=== PATIENT | male | born 1940 | race Caucasian/White ===

== ENCOUNTER 2017-12-17 12:54 | Inpatient (IN) | payer MEDICARE ==
[~2017-12-17] VITALS: Ht 175.3 cm; Wt 80.3 kg
[~2017-12-17 12:54] MED LIST: ACET650T24 PO; ADV250 IH; ALLO300T2 PO; ASCO500C6 PO; ATEN25TA PO; BETA2500 PO; CALC-190 PO; CHOL378P PO; FOLI1TAB85 PO; HYDR-4153 PO; LANS30CA53 PO; LEVO150T11 PO; LOSA25TA21 PO; LYCO10CA3 PO; LYSI500T45 PO; MAGNESIUM/ZINC PO; OMEG1CAP6 PO; PARO30TA76 PO; VITA400C70 PO; VITA80008 PO; VITAMIN B PO
[2017-12-17 14:07] LABS: BASOPHILS % (AUTO) 0.2 % (0.0-5.0); EOSINOPHILS % (AUTO) 0.1 % (0.0-8.0); LYMPHOCYTES % (AUTO) 7.6 % (21.0-51.0); MEAN CORPUSCULAR HEMOGLOBIN 34.2 pg (27.0-33.0); MEAN CORPUSCULAR HGB CONC 34.2 g/dL (32.0-36.0); NEUTROPHILS % (AUTO) 80.1 % (40.0-77.0); PLATELET COUNT (AUTO) 259 K/uL (130-400); RED BLOOD CELL COUNT(AUTO) 3.89 MIL/uL (4.50-6.20); RED CELL DISTRIBUTION WIDTH 12.9 % (11.0-15.5); WHITE BLOOD COUNT (AUTO) 18.6 K/uL (4.8-10.8)
[2017-12-17 14:18] LABS: CREATININE 2.8 mg/dL (0.5-1.5); POTASSIUM 3.7 mmol/L (3.5-5.1)
[2017-12-17] MEDS ORDERED: SODIUM CHLORIDE 0.9% 500ML 500 ML IV ONE (14:22)
[2017-12-17 14:23] LABS: ALBUMIN 2.8 g/dL (3.5-5.0); BILIRUBIN,TOTAL 0.6 mg/dL (0.2-1.0); TOTAL PROTEIN, SERUM 7.6 g/dL (6.0-8.3)
[2017-12-17] MEDS ORDERED: VANCOMYCIN 1GM+NS 250ML 250 ML IV ONE (14:59)
[2017-12-17] MEDS ORDERED: MEROPENEM 1 GM VIAL ONE (14:59)
[2017-12-17 17:18] LABS: APPEARANCE,URINE Clear (CLEAR); BILIRUBIN,URINE Negative (NEGATIVE); COLOR,URINE Yellow (YELLOW); GLUCOSE, URINE (UA) Negative (NEGATIVE); KETONES,URINE Negative (NEGATIVE); LEUKOCYTE ESTERASE ,URINE Negative (NEGATIVE); NITRATE,URINE Negative (NEGATIVE); OCCULT BLOOD,URINE Negative (NEGATIVE); PROTEIN,URINE Negative (NEGATIVE); UROBILINOGEN,URINE 0.2 mg/dL (0.2-1.0)
[2017-12-17] MEDS ORDERED: IPRATROPIUM/ALBUTEROL SULFATE 3 ML SOLUTION IH ONE (17:48)
[2017-12-17] MEDS ORDERED: GUAIFENESIN-DM 200/20 MG 10 ML ONE (18:15)
[2017-12-17] MEDS ORDERED: LEVOFLOXACIN 500 MG/D5W 100 ML 100 ML ONE (18:15)
[2017-12-18] MEDS ORDERED: IPRATROPIUM/ALBUTEROL SULFATE 3 ML SOLUTION IH ONE (00:48)
[2017-12-18] MEDS: SODIUM CHLORIDE 0.9% 1000ML 1,000 ML IV SCH ×2 (02:16→16:30)
[2017-12-18] MEDS ORDERED: LACTULOSE 20 GM/30 ML UDCUP PO PRN (02:30)
[2017-12-18] MEDS ORDERED: MORPHINE SULFATE 2 MG/ML 1ML SYG IVP PRN ×2 (02:30)
[2017-12-18] MEDS ORDERED: HYDRALAZINE HCL 20 MG/ML VIAL IV PRN (02:30)
[2017-12-18 04:00] VITALS: BP 144/70
[2017-12-18 06:09] LABS: BASOPHILS % (AUTO) 0.3 % (0.0-5.0); EOSINOPHILS % (AUTO) 0.4 % (0.0-8.0); HEMATOCRIT 37.7 % (42-54); LYMPHOCYTES % (AUTO) 10.8 % (21.0-51.0); MEAN CORPUSCULAR HEMOGLOBIN 33.7 pg (27.0-33.0); MEAN CORPUSCULAR HGB CONC 33.9 g/dL (32.0-36.0); MEAN CORPUSCULAR VOLUME 99.6 fL (79-99); MONOCYTES % (AUTO) 14.3 % (3.0-13.0); NEUTROPHILS % (AUTO) 74.2 % (40.0-77.0); NUCLEATED RED BLOOD CELLS 0.1 % (0.0-0.19); PLATELET COUNT (AUTO) 262 K/uL (130-400); RED BLOOD CELL COUNT(AUTO) 3.78 MIL/uL (4.50-6.20); RED CELL DISTRIBUTION WIDTH 12.8 % (11.0-15.5); WHITE BLOOD COUNT (AUTO) 16.1 K/uL (4.8-10.8)
[2017-12-18] MEDS: IPRATROPIUM/ALBUTEROL SULFATE 3 ML SOLUTION IH SCH ×5 (06:20→22:53)
[2017-12-18] MEDS ORDERED: GUAIFENESIN SUGAR-FREE 100 MG/5 ML UDCUP PO PRN (06:30)
[2017-12-18] MEDS ORDERED: ONDANSETRON HCL 4 MG/2 ML VIAL IVP PRN (06:30)
[2017-12-18 06:35] LABS: B-TYPE NATRIURETIC PEPTIDE 304 pg/mL (0-100)
[2017-12-18 07:00] VITALS: BP 147/65
[2017-12-18 07:23] LABS: ALANINE AMINOTRANSFERASE 85 U/L (12-78); ALBUMIN 2.4 g/dL (3.5-5.0); ASPARTATE AMINOTRANSFERASE 65 U/L (10-37); BILIRUBIN,TOTAL 0.6 mg/dL (0.2-1.0); CARBON DIOXIDE 30 mmol/L (21-32); CHLORIDE 106 mmol/L (101-111); CREATINE KINASE MB < 0.5 ng/mL (0.5-3.6); CREATINE KINASE, TOTAL 43 U/L (21-232); CREATININE 2.3 mg/dL (0.5-1.5); GLOMERULAR FILTR. RATE CALC 29 mL/min (>60); GLUCOSE,RANDOM 101 mg/dL (70-105); MYOGLOBIN 132 ng/mL (10-92); POTASSIUM 3.8 mmol/L (3.5-5.1); SODIUM SERUM 143 mmol/L (136-145); THYROID STIMULATING HORMONE 2.43 uIU/mL (0.36-3.74); TOTAL PROTEIN, SERUM 6.8 g/dL (6.0-8.3); TROPONIN I < 0.04 ng/mL (0.00-0.06); UREA NITROGEN, BLOOD 42 mg/dL (7-18)
[2017-12-18] MEDS ORDERED: ASPI-555 PO (08:11)
[2017-12-18] MEDS ORDERED: LANS30TA4 PO (08:11)
[2017-12-18] MEDS ORDERED: FERS325 PO (08:11)
[2017-12-18] MEDS ORDERED: ATEN50TA PO (08:11)
[2017-12-18] MEDS ORDERED: MELA1TAB17 PO (08:11)
[2017-12-18] MEDS ORDERED: FURO20TA6 PO (08:11)
[2017-12-18] MEDS ORDERED: DICL50TA9 PO (08:11)
[2017-12-18] MEDS ORDERED: ATOR20TA65 PO (08:11)
[2017-12-18] MEDS ORDERED: PRIM50TA29 PO (08:11)
[2017-12-18] MEDS ORDERED: LEVO175T9 PO (08:11)
[2017-12-18] MEDS ORDERED: ERGO500014 PO (08:11)
[2017-12-18] MEDS ORDERED: LEVOFLOXACIN 500 MG/D5W 100 ML 100 ML IV SCH ×2 (09:00→12:24)
[2017-12-18] MEDS ORDERED: DICLOFENAC SODIUM 50 MG PO SCH (09:13)
[2017-12-18 11:00] VITALS: BP 130/63
[2017-12-18] MEDS: FERROUS SULFATE 325 MG TABLET.DR PO SCH ×2 (11:55→18:05)
[2017-12-18] MEDS: FUROSEMIDE 20 MG TABLET PO SCH ×2 (11:55→18:05)
[2017-12-18] MEDS: ASPIRIN 81 MG EC TAB PO SCH (11:55)
[2017-12-18] MEDS: FAMOTIDINE 20MG TAB 20 MG TAB PO SCH ×2 (11:55→20:29)
[2017-12-18] MEDS: ERGOCALCIFEROL (VITAMIN D2) 50,000 UNIT CAPSULE PO SCH (11:56)
[2017-12-18] MEDS: LOSARTAN 100 MG TABLET PO SCH (11:56)
[2017-12-18] MEDS: LANSOPRAZOLE 15 MG SOLU TAB PO SCH (11:56)
[2017-12-18] MEDS: ACETYLCYSTEINE 20% 200MG/ML 4ML VIAL IH SCH ×2 (13:20→19:47)
[2017-12-18] MEDS: PAROXETINE HCL 20 MG TABLET PO SCH (13:50)
[2017-12-18 16:00] VITALS: BP 145/71
[2017-12-18 20:00] VITALS: BP 157/79
[2017-12-18] MEDS: ATENOLOL 50 MG TABLET PO SCH (20:27)
[2017-12-18] MEDS: CHOLESTYRAMINE PACKET 4 GM PACKET PO SCH (20:28)
[2017-12-18] MEDS: ATORVASTATIN CALCIUM 20 MG TABLET PO SCH (20:30)
[2017-12-18] MEDS: PRIMIDONE 50 MG TAB PO SCH (20:31)
[2017-12-18] MEDS: PYRIDOXINE HCL PO SCH (20:32)
[2017-12-18] MEDS: ACETAMINOPHEN 325 MG TAB PO PRN (20:32)
[2017-12-18] MEDS: MELATONIN PO SCH (20:32)
[2017-12-19] VITALS: BP 156/65
[2017-12-19] MEDS: IPRATROPIUM/ALBUTEROL SULFATE 3 ML SOLUTION IH SCH ×4 (02:44→23:54)
[2017-12-19 04:00] VITALS: BP 158/83
[2017-12-19 05:33] LABS: BASOPHILS % (AUTO) 0.2 % (0.0-5.0); EOSINOPHILS % (AUTO) 0.3 % (0.0-8.0); HEMATOCRIT 35.8 % (42-54); LYMPHOCYTES % (AUTO) 10.4 % (21.0-51.0); MEAN CORPUSCULAR VOLUME 99.8 fL (79-99); MONOCYTES % (AUTO) 17.1 % (3.0-13.0); PLATELET COUNT (AUTO) 271 K/uL (130-400); RED BLOOD CELL COUNT(AUTO) 3.59 MIL/uL (4.50-6.20); RED CELL DISTRIBUTION WIDTH 12.9 % (11.0-15.5); WHITE BLOOD COUNT (AUTO) 13.8 K/uL (4.8-10.8)
[2017-12-19 05:42] LABS: CREATININE 1.9 mg/dL (0.5-1.5); POTASSIUM 3.6 mmol/L (3.5-5.1)
[2017-12-19 06:06] LABS: B-TYPE NATRIURETIC PEPTIDE 436 pg/mL (0-100)
[2017-12-19] MEDS: LEVOTHYROXINE 100 MCG TABLET PO SCH (06:35)
[2017-12-19] MEDS: LEVOTHYROXINE 75 MCG TABLET PO SCH (06:35)
[2017-12-19 08:00] VITALS: BP 157/72
[2017-12-19] MEDS: LANSOPRAZOLE 15 MG SOLU TAB PO SCH (09:00)
[2017-12-19] MEDS: PAROXETINE HCL 20 MG TABLET PO SCH (09:00)
[2017-12-19] MEDS: FAMOTIDINE 20MG TAB 20 MG TAB PO SCH ×2 (09:57→22:03)
[2017-12-19] MEDS: VITAMIN B COMPLEX 1 CAPSULE PO SCH (09:57)
[2017-12-19] MEDS: FERROUS SULFATE 325 MG TABLET.DR PO SCH ×2 (09:57→17:35)
[2017-12-19] MEDS: LOSARTAN 100 MG TABLET PO SCH (09:57)
[2017-12-19] MEDS: FUROSEMIDE 20 MG TABLET PO SCH ×2 (09:58→17:35)
[2017-12-19] MEDS: ASPIRIN 81 MG EC TAB PO SCH (09:58)
[2017-12-19] MEDS: ENOXAPARIN SODIUM 30 MG/0.3 ML SQ SCH (09:59)
[2017-12-19 12:00] VITALS: BP 153/92
[2017-12-19] MEDS: ACETAMINOPHEN 325 MG TAB PO PRN (15:24)
[2017-12-19 16:00] VITALS: BP 159/79
[2017-12-19] MEDS: LEVOFLOXACIN 500 MG/D5W 100 ML 100 ML IV SCH (17:34)
[2017-12-19] MEDS ORDERED: LIDOCAINE HCL-MPF 1% 2ML VIAL IVP PRN (19:00)
[2017-12-19] MEDS ORDERED: POTASSIUM CHLORIDE 20MEQ/100ML 100 ML IV PRN (19:00)
[2017-12-19] MEDS ORDERED: POTASSIUM CHLORIDE 10% ELIXIR 20 MEQ/15 ML UDCUP PO PRN (19:00)
[2017-12-19] MEDS ORDERED: POTASSIUM CHLORIDE 20 MEQ ERTAB PO PRN (19:00)
[2017-12-19] MEDS: ACETYLCYSTEINE 20% 200MG/ML 4ML VIAL IH SCH ×2 (19:22→23:55)
[2017-12-19 20:00] VITALS: BP 148/68
[2017-12-19] MEDS: MELATONIN PO SCH (21:00)
[2017-12-19] MEDS: CHOLESTYRAMINE PACKET 4 GM PACKET PO SCH (21:00)
[2017-12-19] MEDS: PYRIDOXINE HCL PO SCH (21:00)
[2017-12-19] MEDS: ATORVASTATIN CALCIUM 20 MG TABLET PO SCH (22:03)
[2017-12-19] MEDS: ATENOLOL 50 MG TABLET PO SCH (22:04)
[2017-12-19] MEDS: PRIMIDONE 50 MG TAB PO SCH (22:06)
[2017-12-20] VITALS (7 sets, daily range): BP systolic 121–162; BP diastolic 54–72
[2017-12-20 04:50] LABS: BASOPHILS % (AUTO) 0.4 % (0.0-5.0); EOSINOPHILS % (AUTO) 0.3 % (0.0-8.0); HEMATOCRIT 36.3 % (42-54); MEAN CORPUSCULAR HEMOGLOBIN 33.8 pg (27.0-33.0); MEAN CORPUSCULAR VOLUME 99.4 fL (79-99); MONOCYTES % (AUTO) 17.2 % (3.0-13.0); NEUTROPHILS % (AUTO) 73.1 % (40.0-77.0); PLATELET COUNT (AUTO) 307 K/uL (130-400); RED BLOOD CELL COUNT(AUTO) 3.65 MIL/uL (4.50-6.20); RED CELL DISTRIBUTION WIDTH 12.8 % (11.0-15.5); WHITE BLOOD COUNT (AUTO) 14.2 K/uL (4.8-10.8)
[2017-12-20 04:55] LABS: CREATININE 1.8 mg/dL (0.5-1.5); POTASSIUM 3.8 mmol/L (3.5-5.1)
[2017-12-20 05:32] LABS: B-TYPE NATRIURETIC PEPTIDE 1030 pg/mL (0-100)
[2017-12-20] MEDS: IPRATROPIUM/ALBUTEROL SULFATE 3 ML SOLUTION IH SCH (06:34)
[2017-12-20] MEDS: ACETYLCYSTEINE 20% 200MG/ML 4ML VIAL IH SCH ×2 (06:35→06:43)
[2017-12-20] MEDS: LEVOTHYROXINE 100 MCG TABLET PO SCH (07:25)
[2017-12-20] MEDS: LEVOTHYROXINE 75 MCG TABLET PO SCH (07:25)
[2017-12-20] MEDS: ERGOCALCIFEROL (VITAMIN D2) 50,000 UNIT CAPSULE PO SCH (09:19)
[2017-12-20] MEDS: ENOXAPARIN SODIUM 30 MG/0.3 ML SQ SCH (09:19)
[2017-12-20] MEDS: ASPIRIN 81 MG EC TAB PO SCH (09:19)
[2017-12-20] MEDS: LOSARTAN 100 MG TABLET PO SCH (09:19)
[2017-12-20] MEDS: VITAMIN B COMPLEX 1 CAPSULE PO SCH (09:19)
[2017-12-20] MEDS: LANSOPRAZOLE 15 MG SOLU TAB PO SCH (09:20)
[2017-12-20] MEDS: FAMOTIDINE 20MG TAB 20 MG TAB PO SCH ×2 (09:20→21:01)
[2017-12-20] MEDS: FERROUS SULFATE 325 MG TABLET.DR PO SCH ×2 (09:20→17:09)
[2017-12-20] MEDS: FUROSEMIDE 20 MG TABLET PO SCH ×2 (09:20→17:09)
[2017-12-20] MEDS: PAROXETINE HCL 20 MG TABLET PO SCH (09:21)
[2017-12-20] MEDS: ACETAMINOPHEN 325 MG TAB PO PRN (14:37)
[2017-12-20] MEDS: DOXYCYCLINE 100MG+NS 250ML 250 ML IV SCH (14:37)
[2017-12-20] MEDS: IPRATROPIUM/ALBUTEROL SULFATE 3 ML SOLUTION IH PRN (18:52)
[2017-12-20] MEDS: MELATONIN PO SCH (21:00)
[2017-12-20] MEDS: CHOLESTYRAMINE PACKET 4 GM PACKET PO SCH (21:00)
[2017-12-20] MEDS: PYRIDOXINE HCL PO SCH (21:00)
[2017-12-20] MEDS: ATORVASTATIN CALCIUM 20 MG TABLET PO SCH (21:01)
[2017-12-20] MEDS: PRIMIDONE 50 MG TAB PO SCH (21:04)
[2017-12-20] MEDS: ATENOLOL 50 MG TABLET PO SCH (21:04)
[2017-12-21] MEDS: DOXYCYCLINE 100MG+NS 250ML 250 ML IV SCH ×2 (02:35→14:42)
[2017-12-21 04:00] VITALS: BP 156/73
[2017-12-21 05:42] LABS: HEMATOCRIT 36.8 % (42-54); MEAN CORPUSCULAR HEMOGLOBIN 33.2 pg (27.0-33.0); MEAN CORPUSCULAR HGB CONC 33.2 g/dL (32.0-36.0); PLATELET COUNT (AUTO) 306 K/uL (130-400); RED BLOOD CELL COUNT(AUTO) 3.68 MIL/uL (4.50-6.20); RED CELL DISTRIBUTION WIDTH 12.8 % (11.0-15.5)
[2017-12-21 05:54] LABS: CREATININE 1.6 mg/dL (0.5-1.5); POTASSIUM 3.5 mmol/L (3.5-5.1)
[2017-12-21 07:00] VITALS: BP 149/69
[2017-12-21] MEDS: LEVOTHYROXINE 75 MCG TABLET PO SCH (07:48)
[2017-12-21] MEDS: LEVOTHYROXINE 100 MCG TABLET PO SCH (07:48)
[2017-12-21] MEDS: LANSOPRAZOLE 15 MG SOLU TAB PO SCH (09:21)
[2017-12-21] MEDS: ASPIRIN 81 MG EC TAB PO SCH (09:21)
[2017-12-21] MEDS: FAMOTIDINE 20MG TAB 20 MG TAB PO SCH ×2 (09:21→21:13)
[2017-12-21] MEDS: VITAMIN B COMPLEX 1 CAPSULE PO SCH (09:21)
[2017-12-21] MEDS: LOSARTAN 100 MG TABLET PO SCH (09:21)
[2017-12-21] MEDS: PAROXETINE HCL 20 MG TABLET PO SCH (09:21)
[2017-12-21] MEDS: FERROUS SULFATE 325 MG TABLET.DR PO SCH ×2 (09:21→18:30)
[2017-12-21] MEDS: FUROSEMIDE 20 MG TABLET PO SCH ×2 (09:21→18:30)
[2017-12-21] MEDS: ENOXAPARIN SODIUM 30 MG/0.3 ML SQ SCH (09:22)
[2017-12-21 11:00] VITALS: BP 159/71
[2017-12-21] MEDS: ACETAMINOPHEN 325 MG TAB PO PRN (15:14)
[2017-12-21 16:00] VITALS: BP 149/75
[2017-12-21] MEDS: IPRATROPIUM/ALBUTEROL SULFATE 3 ML SOLUTION IH PRN ×2 (16:24→22:23)
[2017-12-21] MEDS: LEVOFLOXACIN 500 MG/D5W 100 ML 100 ML IV SCH ×2 (18:30→21:00)
[2017-12-21 19:50] VITALS: BP 116/53
[2017-12-21] MEDS: CHOLESTYRAMINE PACKET 4 GM PACKET PO SCH (21:00)
[2017-12-21] MEDS: ATENOLOL 50 MG TABLET PO SCH (21:00)
[2017-12-21] MEDS: ATORVASTATIN CALCIUM 20 MG TABLET PO SCH (21:12)
[2017-12-21] MEDS: PRIMIDONE 50 MG TAB PO SCH (21:13)
[2017-12-21] MEDS: MELATONIN PO SCH (21:16)
[2017-12-21] MEDS: PYRIDOXINE HCL PO SCH (21:16)
[2017-12-22] VITALS: BP 137/66
[2017-12-22] MEDS: DOXYCYCLINE 100MG+NS 250ML 250 ML IV SCH (02:30)
[2017-12-22 04:00] VITALS: BP 147/62
[2017-12-22 05:50] LABS: HEMATOCRIT 35.4 % (42-54); MEAN CORPUSCULAR HEMOGLOBIN 33.9 pg (27.0-33.0); MEAN CORPUSCULAR HGB CONC 34.3 g/dL (32.0-36.0); MEAN CORPUSCULAR VOLUME 98.7 fL (79-99); PLATELET COUNT (AUTO) 343 K/uL (130-400); RED BLOOD CELL COUNT(AUTO) 3.59 MIL/uL (4.50-6.20); RED CELL DISTRIBUTION WIDTH 12.5 % (11.0-15.5); WHITE BLOOD COUNT (AUTO) 16.4 K/uL (4.8-10.8)
[2017-12-22 06:14] LABS: CREATININE 1.7 mg/dL (0.5-1.5); POTASSIUM 3.8 mmol/L (3.5-5.1)
[2017-12-22 07:00] VITALS: BP 146/75
[2017-12-22] MEDS: LEVOTHYROXINE 100 MCG TABLET PO SCH (07:40)
[2017-12-22] MEDS: LEVOTHYROXINE 75 MCG TABLET PO SCH (07:40)
[2017-12-22] MEDS: ENOXAPARIN SODIUM 30 MG/0.3 ML SQ SCH (09:00)
[2017-12-22] MEDS: VITAMIN B COMPLEX 1 CAPSULE PO SCH (09:46)
[2017-12-22] MEDS: LANSOPRAZOLE 15 MG SOLU TAB PO SCH (09:46)
[2017-12-22] MEDS: ASPIRIN 81 MG EC TAB PO SCH (09:47)
[2017-12-22] MEDS: FUROSEMIDE 20 MG TABLET PO SCH (09:47)
[2017-12-22] MEDS: LOSARTAN 100 MG TABLET PO SCH (09:47)
[2017-12-22] MEDS: FERROUS SULFATE 325 MG TABLET.DR PO SCH (09:47)
[2017-12-22] MEDS: ERGOCALCIFEROL (VITAMIN D2) 50,000 UNIT CAPSULE PO SCH (09:49)
[2017-12-22] MEDS: FAMOTIDINE 20MG TAB 20 MG TAB PO SCH (09:49)
[2017-12-22] MEDS: PAROXETINE HCL 20 MG TABLET PO SCH (09:49)
[2017-12-22] MEDS: ACETAMINOPHEN 325 MG TAB PO PRN (10:05)
== END 2017-12-22 10:54 | disposition home or self-care (01) | DRG 682 ==
LOC: EDH 12:54 → OBSVTOIN 17:30 → EDHIP 17:30 → 4CH 12-18 03:48
PROVIDERS: ADMIT Internal Medicine; ATTEND Internal Medicine
DX: N17.9 Acute kidney failure, unspecified (principal); J18.9 Pneumonia, unspecified organism; J44.0 Chronic obstructive pulmonary disease with (acute) lower respiratory infection; E44.1 Mild protein-calorie malnutrition; J44.1 Chronic obstructive pulmonary disease with (acute) exacerbation; N18.4 Chronic kidney disease, stage 4 (severe); E86.0 Dehydration; I12.9 Hypertensive chronic kidney disease with stage 1 through stage 4 chronic kidney disease, or unspecified chronic kidney disease; E78.5 Hyperlipidemia, unspecified; I25.10 Atherosclerotic heart disease of native coronary artery without angina pectoris; I87.2 Venous insufficiency (chronic) (peripheral); E03.9 Hypothyroidism, unspecified; M10.9 Gout, unspecified; Z68.26 Body mass index [BMI] 26.0-26.9, adult; Z87.891 Personal history of nicotine dependence; Z90.49 Acquired absence of other specified parts of digestive tract; Z88.2 Allergy status to sulfonamides
CPT/HCPCS: 36415; 71045; 71046; 71250; 80048; 80053; 81003; 82550; 82553; 83605; 83874; 83880; 84443; 84484; 85025; 85027; 87040; 87804; 93005; 94640; 94664; 97039; J1650; J1956; J2185; J3370; J3490; J7030; J7040; J7608

== ENCOUNTER → 2020-12-06 | Outpatient (CLI) | payer OTHER ==
[~2020-12-06] MED LIST changes: -ADV250 IH; -ALLO300T2 PO; +ASPI-556 PO; -ATEN25TA PO; +ATEN50TA PO; +ATOR20TA65 PO; -BETA2500 PO; -CALC-190 PO; -CHOL378P PO; +CYAN-35 PO; +ERGO500014 PO; +FERS325 PO; -HYDR-4153 PO; +HYDR-4154 PO; +IPRA6S NASAL; -LANS30CA53 PO; +LANS30TA4 PO; -LEVO150T11 PO; +LEVO175T9 PO; -LOSA25TA21 PO; -LYCO10CA3 PO; -MAGNESIUM/ZINC PO; +MELA1TAB21 PO; -OMEG1CAP6 PO; +PARO-66 PO; -PARO30TA76 PO; +PRIM50TA29 PO; +TORS20TA4 PO; +TRAZ-185 PO; +UBID200C18 PO; -VITA400C70 PO; -VITA80008 PO; -VITAMIN B PO; +[UNRECOGNIZED DRUG - CODE] PO
== END | disposition home or self-care (01) ==
LOC: RAH 17:08
PROVIDERS: ATTEND Family Medicine
DX: Z13.6 Encounter for screening for cardiovascular disorders (principal)
CPT/HCPCS: 75571